=== PATIENT | male | born 1965 | race Caucasian/White ===

== ENCOUNTER 2019-08-26 14:01 | Emergency (ER) | payer OTHER ==
[~2019-08-26] VITALS: Ht 165.1 cm; Wt 80.9 kg
[2019-08-26 15:40] VITALS: BP 140/78
== END 2019-08-26 15:40 | disposition home or self-care (01) ==
LOC: ER 14:01
DX: Z03.818 Encounter for observation for suspected exposure to other biological agents ruled out (principal); J02.9 Acute pharyngitis, unspecified
CPT/HCPCS: 99283; C9803; U0003; 99281